=== PATIENT | female | born 1940 | race Caucasian/White ===

== ENCOUNTER 2017-03-11 08:51 | Outpatient (CLI) | payer OTHER ==
[2016-09-30 09:33] VITALS: BP 134/77
[2017-03-11 09:54] LABS: eGFR (African) > 60; eGFR (Non-African) > 60
== END 2017-03-11 08:52 ==
LOC: LAB 08:51
PROVIDERS: ATTEND Family Medicine
DX: E78.5 Hyperlipidemia, unspecified (principal); Z51.81 Encounter for therapeutic drug level monitoring; Z79.899 Other long term (current) drug therapy
CPT/HCPCS: 36415; 80053; 80061; 80162

== ENCOUNTER 2018-05-19 16:14 | Outpatient (CLI) | payer OTHER ==
[2016-09-30 09:33] VITALS: BP 134/77
== END 2018-05-19 16:15 ==
LOC: LABRHC 16:14
PROVIDERS: ATTEND Physician Assistant
DX: R30.0 Dysuria (principal)
CPT/HCPCS: 87086

== ENCOUNTER 2018-10-28 08:50 | Outpatient (CLI) | payer OTHER ==
[2016-09-30 09:33] VITALS: BP 134/77
== END 2018-10-28 08:53 ==
LOC: LAB 08:50
PROVIDERS: ATTEND Family Medicine
DX: R73.9 Hyperglycemia, unspecified (principal)
CPT/HCPCS: 36415; 83036

== ENCOUNTER 2018-11-04 09:29 | Outpatient (CLI) | payer OTHER ==
[2016-09-30 09:33] VITALS: BP 134/77
== END 2018-11-04 09:30 ==
LOC: RAD 09:29
PROVIDERS: ATTEND Family Medicine
DX: M85.88 Other specified disorders of bone density and structure, other site (principal); Z78.0 Asymptomatic menopausal state
CPT/HCPCS: 77080

== ENCOUNTER 2019-03-09 09:33 | Outpatient (CLI) | payer OTHER ==
[2016-09-30 09:33] VITALS: BP 134/77
--- NOTE | 2019-03-09 10:11 | Diagnostic Imaging Report ---
[facility] [address] [facility].[address] [address] Report Submission Date: Mar 09, 2019 10:02:32 AM CDT Patient Study Name: KANG BHAGAT Date: Mar 09, 2019 9:52:19 AM CDT Modality Type: DX Gender: F Description: CHEST 2VIEW : 44 Institution: [facility] Physician: [facility] Examination: PA and lateral chest. History: Evaluate lung carballo. Comparison exam: None provided. Findings: PA and lateral views of the chest demonstrates a normal cardiac and mediastinal silhouette. Tortuous aorta. Elevated right hemidiaphragm. No focal infiltrate. No blunting of the costophrenic margins. Osseous structures are appropriate for age. Impression: No acute pulmonary process. Electronically signed on Mar 09, 2019 10:02:32 AM CDT by: Jeffrey SALINAS
== END 2019-03-09 09:35 ==
LOC: LAB 09:33
PROVIDERS: ATTEND Family Medicine
DX: R73.9 Hyperglycemia, unspecified (principal); R05 Cough
CPT/HCPCS: 36415; 71046; 83036

== ENCOUNTER 2019-09-02 09:45 | Outpatient (CLI) | payer OTHER ==
[2016-09-30 09:33] VITALS: BP 134/77
[2019-09-09 12:11] LABS: BASOPHILS % 0.4 % (0.0-1.5); NEUTROPHILS # 3.6 # k/uL (1.4-7.7); eGFR (Non-African) > 60
--- NOTE | 2019-09-27 10:30 | Diagnostic Imaging Report ---
[facility] [id number] [address] Report Submission Date: Sep 02, 2019 10:47:35 AM CDT Patient Study Name: KANG BHAGAT Date: Sep 02, 2019 9:57:00 AM CDT Modality Type: DX Gender: F Description: C SPINE 2 OR 3 VIEWS : 44 Institution: [facility] Physician: [facility] Cervical Spine 3 views Indication:ORDER STATES NECK PAIN AND ALEX (Hx) / Note time : 09/02/2019 10:20:15 AM User : Quintin Perry ORDER STATES NECK PAIN AND ALEX (DICOM Hx) (DICOM Hx) Findings: 3 views of the cervical spine demonstrate no acute fracture, subluxation, or dislocation. The prevertebral soft tissue is unremarkable. Endplate degenerative changes are present at C4, C5 and C6. There is intervertebral disc space narrowing a C5-C6. Bony demineralization is present. Impression: No acute osseous abnormality Bony demineralization degenerative changes Electronically signed on Sep 02, 2019 10:47:35 AM CDT by: Silvino SALINAS
== END 2019-09-02 10:10 | disposition home or self-care (01) ==
LOC: LAB 09:45
PROVIDERS: ATTEND Family Medicine
DX: M54.2 Cervicalgia (principal); R06.00 Dyspnea, unspecified
CPT/HCPCS: 36415; 72040; 80053; 80162; 83036; 85025; 93005

== ENCOUNTER 2019-09-13 11:12 | Outpatient (CLI) | payer OTHER ==
[2016-09-30 09:33] VITALS: BP 134/77
== END 2019-09-13 11:17 ==
LOC: LAB 11:12
PROVIDERS: ATTEND Family Medicine
DX: Z13.220 Encounter for screening for lipoid disorders (principal)
CPT/HCPCS: 36415; 80061